=== PATIENT | female | born 1955 | race Caucasian/White ===

== ENCOUNTER 2020-01-15 08:13 | Day surgery (SDC) | payer OTHER ==
[2020-01-08 12:09] LABS: BASOPHILS % (AUTO) 0.6 % (0-1); EOSINOPHILS # (AUTO) 0.1 X10'3 (0-0.9); EOSINOPHILS % (AUTO) 1.9 % (0-6); LYMPHOCYTES # (AUTO) 1.8 X10'3 (1.1-4.8); LYMPHOCYTES % (AUTO) 28.4 % (21-51); MEAN CORPUSCULAR HEMOGLOBIN 31.5 PG (27.0-31.0); MEAN CORPUSCULAR VOLUME 92.7 FL (78-98); MONOCYTES # (AUTO) 0.7 X10'3 (0-0.9); NEUTROPHILS # (AUTO) 3.5 X10'3 (1.8-7.7); NEUTROPHILS % (AUTO) 57.1 % (42-75); PRE OP HEMATOCRIT 38.6 % (35.0-45.0); PRE OP HEMOGLOBIN 13.1 g/dL (12.0-16.0); PRE OP PLATELET COUNT 436 X10'3 (140-440); RED BLOOD COUNT 4.17 X10'6 (4.20-5.60)
[2020-01-08 12:22] LABS: PRE OP PARTIAL THROMB. TIME 27 SECONDS (22-32)
[2020-01-08 12:31] LABS: ALBUMIN 3.8 G/DL (3.4-5.0); ALKALINE PHOSPHATASE 79 IU/L (46-116); BLOOD UREA NITROGEN 12 MG/DL (7-18); BUN/CREATININE RATIO 17.1 (6.6-38.0); CALCIUM 9.4 MG/DL (8.5-10.1); CHLORIDE 108 MMOL/L (99-107); PRE OP ALT 32 U/L (30-65); PRE OP ANION GAP 3 (8-16); PRE OP AST 23 U/L (10-37); PRE OP BILIRUB, TOTAL 0.4 MG/DL (0.0-1.0); PRE OP GLUCOSE 92 MG/DL (70-104); PRE OP POTASSIUM 3.8 MMOL/L (3.4-5.1); PRE OP SODIUM 143 MMOL/L (135-145); TOTAL CARBON DIOXIDE 31.8 MMOL/L (24-32); TOTAL PROTEIN 7.8 G/DL (6.4-8.2); eGFR 84 ML/MIN
[~2020-01-15] VITALS: Ht 165.1 cm; Wt 74.8 kg
[2020-01-15] VITALS (10 sets, daily range): BP systolic 96–145; BP diastolic 66–81
[~2020-01-15 08:13] MED LIST: AMOX-422 PO; ASPI-611 PO; GLUC-226 PO; LIDOcaine 1% W/epiNEPHrine 1:100,000 20ml vial ONE; LISI-600 PO; MULT-1085 PO; PHEN105C47 PO; cefTAZidime 1gm inj ONE; cocaine 4% topical solution 4ml bottle ONE; famotidine 20mg tablet PO ONE; methylPREDNISolone acetate 80mg/ml inj**IM only ONE; mupirocin 2% ointment 22GM ONE; oxymetazoline 15 ML nasal spray NS ONE; ringers solution, lacted 1,000 ML IV SCH
[2020-01-15] MEDS ORDERED: LIDOcaine 1% W/epiNEPHrine 1:100,000 20ml vial ONE (08:27)
[2020-01-15] MEDS ORDERED: ondansetron/PF 4mg/2ml inj IV PRN (09:00)
[2020-01-15] MEDS ORDERED: morphine 4 MG/ML inj SYRINge IV PRN (09:00)
[2020-01-15] MEDS ORDERED: morphine 2 MG/ML inj. syringe IV PRN (09:00)
[2020-01-15] MEDS ORDERED: ringers solution, lacted 1,000 ML IV SCH (09:00)
[2020-01-15] MEDS ORDERED: meperidine/PF 25mg/ml syringe IV PRN ×2 (09:00)
[2020-01-15] MEDS ORDERED: proCHLORperazine 10 MG/2 ml inj IV PRN (09:00)
[2020-01-15] MEDS ORDERED: sevoflurane 250ml liquid IH ONE (10:06)
[2020-01-15] MEDS ORDERED: dexamethasone sod phosphate 10mg/ml inj ONE (10:06)
[2020-01-15] MEDS ORDERED: propofol inj 20 ML IV ONE (10:07)
[2020-01-15] MEDS ORDERED: fentaNYL/PF 50MCG/1 ML 2ML syringe ONE (10:07)
[2020-01-15] MEDS ORDERED: midazolam 2 mg/2 ml injection ONE (10:07)
[2020-01-15] MEDS ORDERED: LIDOcaine 2% (20mg/ml) 5ml vial ONE (10:07)
[2020-01-15] MEDS ORDERED: ondansetron/PF 4mg/2ml inj ONE (10:43)
--- NOTE | 2020-01-15 11:15 | NUR ---
.Received from OR via BED , accompanied by Anesthesiologist DR FORD and report given by Anesthesiolgist. PATIENT WAKING UP, C/O PAIN IN NARES SEE EMAR, V/S WNL, SCD ON, 20G PIV LUE, LEFT NARES COTTONOID WITH MINIMAL DRAINAGE SO FAR.
[2020-01-15] MEDS: meperidine/PF 25mg/ml syringe IV PRN ×2 (11:19→11:40)
[2020-01-15] MEDS ORDERED: acetaminophen 1,000mg/100ml IV 100 ML IV ONE (11:20)
--- NOTE | 2020-01-15 11:45 | NUR ---
COTTONOID REMOVED FROM LEFT NARES INSTRUCTED BY DR WISE WITH BNO S/S OF COMPLICATIONS.
[2020-01-15] MEDS ORDERED: salt irrigation nasal spray 45 ML SPRAY NS PRN (11:50)
--- NOTE | 2020-01-15 12:35 | NUR ---
PATIENT A&OX4, STATES PAIN CONTROLLED TO SINUS, V/S WNL, SCD ON, 20G PIV LUE D/C, LEFT NARES COTTONOID WITH MINIMAL DRAINAGE SO FAR W/4X4 MUSTACHE DRESSING. I HAVE REVIEWED D/C INSTRUCTIONS WITH PATIENT AND SHE HAS VERBALIZED UNDERSTANDING. SHE WAS GIVEN OCEAN SPRAY AND OINTMENT AND DEMO ITS FIRST DOSE WITH SUCCESS. PATIENT D/C HOME WITH AND ALL BELONGINGS.
== END 2020-01-15 12:35 | disposition home or self-care (01) ==
LOC: PAS 08:13
PROVIDERS: ATTEND Otolaryngology
DX: J32.8 Other chronic sinusitis (principal); J34.89 Other specified disorders of nose and nasal sinuses; I10 Essential (primary) hypertension; E66.01 Morbid (severe) obesity due to excess calories; Z68.27 Body mass index [BMI] 27.0-27.9, adult; Z20.828 Contact with and (suspected) exposure to other viral communicable diseases; Z79.899 Other long term (current) drug therapy; Z79.01 Long term (current) use of anticoagulants; Z90.710 Acquired absence of both cervix and uterus; Z98.890 Other specified postprocedural states; Z86.718 Personal history of other venous thrombosis and embolism; Z88.8 Allergy status to other drugs, medicaments and biological substances; Z72.89 Other problems related to lifestyle
CPT/HCPCS: 31254; 31267; 31276; 36415; 61782; 76380; 80053; 82948; 85025; 85576; 85610; 85730; 87070; 87075; 87102; 87635; 93005; A6402; C9250; C9803; J0131; J0713; J1040; J1100; J2001; J2175; J2250; J2405; J2704; J3010; J7040; J7120; A4618; A7000